=== PATIENT | male | born 1980 | race Caucasian/White ===

== ENCOUNTER 2018-10-26 16:47 | Emergency (ER) | payer MEDICARE, SELFPAY ==
[2018-10-26 16:54] VITALS: BP 133/87; PULSE 88; RESP 20; O2SAT 100
[2018-10-26 17:31] LABS: Add Manual Diff / Slide Review NO; Basophils Absolute Auto 0 /uL (0-100); Basophils Percent Auto 0.4 % (0-2); Eosinophils Absolute Auto 300 /uL (0-450); Eosinophils Percent Auto 3.4 % (2-4); Hematocrit 49.9 % (41-53); Hemoglobin 16.6 g/dL (13.5-17.5); Lymphocytes Absolute Auto 2600 /uL (1100-4500); Mean Corpuscular HGB Conc 33.2 % (30-36); Mean Corpuscular Volume 84.3 fL (80-100); Monocytes Absolute Auto 700 /uL (0-900); Monocytes Percent Auto 6.8 % (3-14); Neutrophils Absolute Auto 6400 /uL (1500-7000); Neutrophils Percent Auto 63.4 % (50-75); Platelet Count 209 X10^3/uL (150-400); Red Blood Cell Count 5.92 X10^6/uL (4.5-5.9); Red Cell Distribution Width 13.5 % (11.6-14.8); White Blood Cell Count 10.2 X10^3/uL (4.5-11.0)
--- NOTE | 2018-10-26 17:45 | PC.NURSE ---
PARTNER MARKETING MANAGER in room talking with pt.
--- NOTE | 2018-10-26 17:49 | ED.PSYCH ---
HPI - Psych <Esteban Chacko DO - Last Filed: 11/01/18 07:05> General Chief Complaint: Psychiatric Symptoms Stated Complaint: Suicidal Ideation Time Seen by Provider: 10/26/18 16:58 Source: patient Mode of arrival: ambulatory Limitations: no limitations History of Present Illness HPI Narrative: Patient is a 38-year-old male with a history of bipolar type 2. Does not see a mental health provider. His medications are provided by his primary doctor. He states that he stopped his medications approximately 1.5 weeks ago. Patient unable to give an exact reason why. Last evening patient stated that he tried to hang himself with an extension cord however the cords slipped. He has no neck pain or shortness of breath. States he did not hang from the cord. Did cut his left forearm. He has tried to hurt himself in the past. When he was in high school he was admitted to the hospital for mental health issues but has never been admitted since then. Denies any alcohol use in the past 24 hr. He states that he came to the emergency department today because he talked to his mom who lives in [place]. He states that last night was my plan tonight is her plan Related Data Home Medications Medication Instructions Recorded Confirmed cholecalciferol (vitamin D3) 5,000 unit PO DAILY 10/26/18 10/26/18 [Vitamin D3] citalopram 10 mg PO BEDTIME 10/26/18 10/26/18 clonazepam 0.5 mg PO BID 10/26/18 10/26/18 lamotrigine 200 mg PO BEDTIME 10/26/18 10/26/18 lisinopril 20 mg PO DAILY 10/26/18 10/26/18 loratadine 10 mg PO DAILY 10/26/18 10/26/18 phentermine 37.5 mg PO DAILY 10/26/18 10/26/18 ranitidine HCl 150 mg PO DAILY 10/26/18 10/26/18 Allergies Allergy/AdvReac Type Severity Reaction Status Date / Time cannabidiol (CBD) extract Allergy Swelling Verified 10/26/18 16:58 of the Eye Review of Systems <DO Brianna Hubbard Last Filed: 11/01/18 07:05> Constitutional Denies fever(s) ENT Ears, Nose, Mouth, and Throat: Denies dysphagia, Denies sore throat and Denies throat swelling Cardiovascular Denies chest pain and Denies dyspnea Respiratory Denies dyspnea Gastrointestinal Gastrointestinal: Denies abdominal pain and Denies dysphagia Genitourinary Denies dysuria Integumentary/Breasts Denies rash Neurologic Reports behavioral changes Psychiatric Reports anxiety, Reports behavioral changes, Reports depression, Reports irritability, Denies homicidal ideation and Reports suicidal ideation Hematologic/Lymphatic Comments: Not on anticoagulation Allergic/Immunologic Denies throat swelling PFSH <Esteban Chacko DO - Last Filed: 11/01/18 07:05> Medical History Bipolar 2 disorder (Acute) Surgical History No pertinent past surgical history (Acute) Social History marital status: unmarried,single lives independently: Yes Social History marital status: unmarried,single lives independently: Yes Exam <Esteban Chacko DO - Last Filed: 11/01/18 07:05> Initial Vital Signs Initial Vital Signs: Vital Signs Pulse Rate 88 10/26/18 16:54 Respiratory Rate 20 10/26/18 16:54 Blood Pressure 133/87 10/26/18 16:54 Pulse Oximetry 100 10/26/18 16:54 Const General: cooperative, healthy appearing, comfortable, well developed, well groomed and No acute distress Orientation: alert, awake and oriented x3 HENNC Head: normal to inspection, normocephalic and atraumatic Nose: external nose normal Neck Neck: normal visual inspection, full ROM, trachea midline, supple, No midline deformity, No tender and No submandibular swelling Lymphatic: No lymphadenopathy Resp Effort & Inspection: normal respiratory effort Auscultation: clear to auscultation bilaterally Cardio Rate: regular rate Rhythm: regular rhythm Pulses: radial pulses present Skin General: no rashes or lesions noted, No jaundice and No petechiae Rashes: no rashes Other: No bruising around the neck patient has 2x 8 in superficial lacerations to the volar aspect of his left arm. No active bleeding. Neuro General: alert, awake and oriented x3 Cognition: normal cognition Speech: speech normal Gait: normal gait Motor: muscle tone normal throughout Extrem General: normal to inspection and capillary refill normal Psych Appearance: grossly normal and well kempt Speech and Movement: agitated, pressured speech, restless and speech not slurred Mood: anxious mood Affect: animated Attitude: cooperative Thought Content: no homicidality and suicidality <Kosta Lopez MD - Last Filed: 11/15/18 02:24> Initial Vital Signs Initial Vital Signs: Vital Signs Pulse Rate 88 10/26/18 16:54 Respiratory Rate 20 10/26/18 16:54 Blood Pressure 133/87 10/26/18 16:54 Pulse Oximetry 100 10/26/18 16:54 <Leslie Dc DO - Last Filed: 10/27/18 18:38> Initial Vital Signs Initial Vital Signs: Vital Signs Pulse Rate 88 10/26/18 16:54 Respiratory Rate 20 10/26/18 16:54 Blood Pressure 133/87 10/26/18 16:54 Pulse Oximetry 100 10/26/18 16:54 Course <Esteban Chacko DO - Last Filed: 11/01/18 07:05> Orders Ordered: Discontinued Medications Clonazepam (Klonopin) 2 mg PO NOW ONE Stop: 10/27/18 00:29 Last Admin: 10/27/18 00:46 Dose: 1 mg Clonazepam (Klonopin) 0.5 mg PO NOW ONE Stop: 10/27/18 12:28 Last Admin: 10/27/18 14:12 Dose: 0.5 mg Lisinopril (Zestril) 20 mg PO NOW ONE Stop: 10/27/18 12:28 Last Admin: 10/27/18 12:37 Dose: 20 mg Vital Signs - 8 hr 10/27/18 12:06 10/27/18 12:37 10/27/18 14:16 Temperature 97.6 F 97.0 F L Pulse Rate 90 90 82 Respiratory Rate 16 16 Blood Pressure 119/84 Blood Pressure [Right Arm] 119/84 123/85 Pulse Oximetry 96 <Kosta Lopez MD - Last Filed: 11/15/18 02:24> Course Narrative: 01:00 AM. 10/27/2018. The initial assessment was by Dr. Chacko prior to my arrival on my shift. The patient was evaluated for a suicide attempt yesterday by hanging. He also made a gesture of cutting his arm today but did no significant injury. Since my arrival on shift the patient has been compliant with nurses, the secondary social studies teacher has been working into the evening trying to find him a mental health bed. The 2 facilities that were most responsive for probably offering placement have not offered a bed tonight. Best opportunity will occur in the morning, apparently. For the night, the patient has been given clonazepam to help him sleep, at his request. He remains compliant with staff and easy to manage. He is in a voluntary status. Manuelito LUNA. Orders Ordered: Discontinued Medications Clonazepam (Klonopin) 2 mg PO NOW ONE Stop: 10/27/18 00:29 Last Admin: 10/27/18 00:46 Dose: 1 mg Clonazepam (Klonopin) 0.5 mg PO NOW ONE Stop: 10/27/18 12:28 Last Admin: 10/27/18 14:12 Dose: 0.5 mg Lisinopril (Zestril) 20 mg PO NOW ONE Stop: 10/27/18 12:28 Last Admin: 10/27/18 12:37 Dose: 20 mg Vital Signs - 8 hr 10/27/18 12:06 10/27/18 12:37 10/27/18 14:16 Temperature 97.6 F 97.0 F L Pulse Rate 90 90 82 Respiratory Rate 16 16 Blood Pressure 119/84 Blood Pressure [Right Arm] 119/84 123/85 Pulse Oximetry 96 <Leslie Dc DO - Last Filed: 10/27/18 18:38> Orders Ordered: Discontinued Medications Clonazepam (Klonopin) 2 mg PO NOW ONE Stop: 10/27/18 00:29 Last Admin: 10/27/18 00:46 Dose: 1 mg Clonazepam (Klonopin) 0.5 mg PO NOW ONE Stop: 10/27/18 12:28 Last Admin: 10/27/18 14:12 Dose: 0.5 mg Lisinopril (Zestril) 20 mg PO NOW ONE Stop: 10/27/18 12:28 Last Admin: 10/27/18 12:37 Dose: 20 mg Vital Signs - 8 hr 10/27/18 12:06 10/27/18 12:37 10/27/18 14:16 Temperature 97.6 F 97.0 F L Pulse Rate 90 90 82 Respiratory Rate 16 16 Blood Pressure 119/84 Blood Pressure [Right Arm] 119/84 123/85 Pulse Oximetry 96 [facility] - Psych <Esteban Chacko DO - Last Filed: 11/01/18 07:05> Lab Data Result diagrams: 10/26/18 17:20 10/26/18 17:20 Lab Results 10/26/18 10/26/18 10/26/18 Range/Units 17:20 17:20 17:20 WBC 10.2 (4.5-11.0) X10^3/uL RBC 5.92 H (4.5-5.9) X10^6/uL Hgb 16.6 (13.5-17.5) g/dL Hct 49.9 (41-53) % MCV 84.3 (80-100) fL MCH 28.0 (26-34) PG MCHC 33.2 (30-36) % RDW 13.5 (11.6-14.8) % Plt Count 209 (150-400) X10^3/uL Neut % (Auto) 63.4 (50-75) % Lymph % (Auto) 26.0 (25-40) % [place] % (Auto) 6.8 (3-14) % Eos % (Auto) 3.4 (2-4) % Baso % (Auto) 0.4 (0-2) % Neut # (Auto) 6400 (4772-3541) /uL Lymph # (Auto) 2600 (1148-5672) /uL [place] # (Auto) 700 (0-900) /uL Eos # (Auto) 300 (0-450) /uL Baso # (Auto) 0 (0-100) /uL Sodium 142 (137-145) mmol/L Potassium 4.5 (3.4-5.1) mmol/L Chloride 103 (98-107) mmol/L Carbon Dioxide 22 (22-32) mmol/L BUN 13 (9-20) mg/dL Creatinine 1.30 H (0.66-1.25) mg/dL Estimated GFR > 60.0 (>60) mL/min BUN/Creatinine Ratio 10.0 (6-22) Glucose 101 H (70-100) mg/dL Calcium 9.7 (8.4-10.2) mg/dL TSH 2.13 (0.47-4.68) uIU/mL Salicylates < 1.0 (<20) mg/dL Urine Opiates Screen (Negative) Ur Oxycodone Screen (Negative) Urine Methadone Screen (Negative) Acetaminophen < 10 L (10-30) ug/mL Ur Barbiturates Screen (Negative) U Tricyclic Antidepress (Negative) Ur Phencyclidine Scrn (Negative) Ur Amphetamines Screen (Negative) U Methamphetamines Scrn (Negative) Ur MDMA Scrn (Ecstasy) (Negative) U Benzodiazepines Scrn (Negative) Urine Cocaine Screen (Negative) U Marijuana (THC) Screen (Negative) Ethyl Alcohol < 10 mg/dL 10/26/18 Range/Units 18:30 WBC (4.5-11.0) X10^3/uL RBC (4.5-5.9) X10^6/uL Hgb (13.5-17.5) g/dL Hct (41-53) % MCV (80-100) fL MCH (26-34) PG MCHC (30-36) % RDW (11.6-14.8) % Plt Count (150-400) X10^3/uL Neut % (Auto) (50-75) % Lymph % (Auto) (25-40) % [place] % (Auto) (3-14) % Eos % (Auto) (2-4) % Baso % (Auto) (0-2) % Neut # (Auto) (5757-7187) /uL Lymph # (Auto) (2467-9540) /uL [place] # (Auto) (0-900) /uL Eos # (Auto) (0-450) /uL Baso # (Auto) (0-100) /uL Sodium (137-145) mmol/L Potassium (3.4-5.1) mmol/L Chloride (98-107) mmol/L Carbon Dioxide (22-32) mmol/L BUN (9-20) mg/dL Creatinine (0.66-1.25) mg/dL Estimated GFR (>60) mL/min BUN/Creatinine Ratio (6-22) Glucose (70-100) mg/dL Calcium (8.4-10.2) mg/dL TSH (0.47-4.68) uIU/mL Salicylates (<20) mg/dL Urine Opiates Screen Negative (Negative) Ur Oxycodone Screen Negative (Negative) Urine Methadone Screen Negative (Negative) Acetaminophen (10-30) ug/mL Ur Barbiturates Screen Negative (Negative) U Tricyclic Antidepress Negative (Negative) Ur Phencyclidine Scrn Negative (Negative) Ur Amphetamines Screen Negative (Negative) U Methamphetamines Scrn Negative (Negative) Ur MDMA Scrn (Ecstasy) Negative (Negative) U Benzodiazepines Scrn Positive H (Negative) Urine Cocaine Screen Negative (Negative) U Marijuana (THC) Screen Positive H (Negative) Ethyl Alcohol mg/dL MDM Narrative Medical decision making narrative: Patient attempted to hang himself last night however there are no residual findings from this. Will hold on any radiologic studies for now. Patient arrived here voluntarily however he does have a specific plan about hurting himself. He states that he does want to be admitted to the hospital. Labs are pending. Care turned over to night provider at change of shift. Social Work also involved. <Kosta Lopez MD - Last Filed: 11/15/18 02:24> Lab Data Lab Results 10/26/18 10/26/18 10/26/18 Range/Units 17:20 17:20 17:20 WBC 10.2 (4.5-11.0) X10^3/uL RBC 5.92 H (4.5-5.9) X10^6/uL Hgb 16.6 (13.5-17.5) g/dL Hct 49.9 (41-53) % MCV 84.3 (80-100) fL MCH 28.0 (26-34) PG MCHC 33.2 (30-36) % RDW 13.5 (11.6-14.8) % Plt Count 209 (150-400) X10^3/uL Neut % (Auto) 63.4 (50-75) % Lymph % (Auto) 26.0 (25-40) % [place] % (Auto) 6.8 (3-14) % Eos % (Auto) 3.4 (2-4) % Baso % (Auto) 0.4 (0-2) % Neut # (Auto) 6400 (0318-5502) /uL Lymph # (Auto) 2600 (3319-2349) /uL [place] # (Auto) 700 (0-900) /uL Eos # (Auto) 300 (0-450) /uL Baso # (Auto) 0 (0-100) /uL Sodium 142 (137-145) mmol/L Potassium 4.5 (3.4-5.1) mmol/L Chloride 103 (98-107) mmol/L Carbon Dioxide 22 (22-32) mmol/L BUN 13 (9-20) mg/dL Creatinine 1.30 H (0.66-1.25) mg/dL Estimated GFR > 60.0 (>60) mL/min BUN/Creatinine Ratio 10.0 (6-22) Glucose 101 H (70-100) mg/dL Calcium 9.7 (8.4-10.2) mg/dL TSH 2.13 (0.47-4.68) uIU/mL Salicylates < 1.0 (<20) mg/dL Urine Opiates Screen (Negative) Ur Oxycodone Screen (Negative) Urine Methadone Screen (Negative) Acetaminophen < 10 L (10-30) ug/mL Ur Barbiturates Screen (Negative) U Tricyclic Antidepress (Negative) Ur Phencyclidine Scrn (Negative) Ur Amphetamines Screen (Negative) U Methamphetamines Scrn (Negative) Ur MDMA Scrn (Ecstasy) (Negative) U Benzodiazepines Scrn (Negative) Urine Cocaine Screen (Negative) U Marijuana (THC) Screen (Negative) Ethyl Alcohol < 10 mg/dL 10/26/18 Range/Units 18:30 WBC (4.5-11.0) X10^3/uL RBC (4.5-5.9) X10^6/uL Hgb (13.5-17.5) g/dL Hct (41-53) % MCV (80-100) fL MCH (26-34) PG MCHC (30-36) % RDW (11.6-14.8) % Plt Count (150-400) X10^3/uL Neut % (Auto) (50-75) % Lymph % (Auto) (25-40) % [place] % (Auto) (3-14) % Eos % (Auto) (2-4) % Baso % (Auto) (0-2) % Neut # (Auto) (9653-1943) /uL Lymph # (Auto) (5635-5540) /uL [place] # (Auto) (0-900) /uL Eos # (Auto) (0-450) /uL Baso # (Auto) (0-100) /uL Sodium (137-145) mmol/L Potassium (3.4-5.1) mmol/L Chloride (98-107) mmol/L Carbon Dioxide (22-32) mmol/L BUN (9-20) mg/dL Creatinine (0.66-1.25) mg/dL Estimated GFR (>60) mL/min BUN/Creatinine Ratio (6-22) Glucose (70-100) mg/dL Calcium (8.4-10.2) mg/dL TSH (0.47-4.68) uIU/mL Salicylates (<20) mg/dL Urine Opiates Screen Negative (Negative) Ur Oxycodone Screen Negative (Negative) Urine Methadone Screen Negative (Negative) Acetaminophen (10-30) ug/mL Ur Barbiturates Screen Negative (Negative) U Tricyclic Antidepress Negative (Negative) Ur Phencyclidine Scrn Negative (Negative) Ur Amphetamines Screen Negative (Negative) U Methamphetamines Scrn Negative (Negative) Ur MDMA Scrn (Ecstasy) Negative (Negative) U Benzodiazepines Scrn Positive H (Negative) Urine Cocaine Screen Negative (Negative) U Marijuana (THC) Screen Positive H (Negative) Ethyl Alcohol mg/dL <Leslie Dc, DO - Last Filed: 10/27/18 18:38> Lab Data Attestation: I reviewed the patient's lab results. Lab Results 10/26/18 10/26/18 10/26/18 Range/Units 17:20 17:20 17:20 WBC 10.2 (4.5-11.0) X10^3/uL RBC 5.92 H (4.5-5.9) X10^6/uL Hgb 16.6 (13.5-17.5) g/dL Hct 49.9 (41-53) % MCV 84.3 (80-100) fL MCH 28.0 (26-34) PG MCHC 33.2 (30-36) % RDW 13.5 (11.6-14.8) % Plt Count 209 (150-400) X10^3/uL Neut % (Auto) 63.4 (50-75) % Lymph % (Auto) 26.0 (25-40) % [place] % (Auto) 6.8 (3-14) % Eos % (Auto) 3.4 (2-4) % Baso % (Auto) 0.4 (0-2) % Neut # (Auto) 6400 (6745-2083) /uL Lymph # (Auto) 2600 (6293-1169) /uL [place] # (Auto) 700 (0-900) /uL Eos # (Auto) 300 (0-450) /uL Baso # (Auto) 0 (0-100) /uL Sodium 142 (137-145) mmol/L Potassium 4.5 (3.4-5.1) mmol/L Chloride 103 (98-107) mmol/L Carbon Dioxide 22 (22-32) mmol/L BUN 13 (9-20) mg/dL Creatinine 1.30 H (0.66-1.25) mg/dL Estimated GFR > 60.0 (>60) mL/min BUN/Creatinine Ratio 10.0 (6-22) Glucose 101 H (70-100) mg/dL Calcium 9.7 (8.4-10.2) mg/dL TSH 2.13 (0.47-4.68) uIU/mL Salicylates < 1.0 (<20) mg/dL Urine Opiates Screen (Negative) Ur Oxycodone Screen (Negative) Urine Methadone Screen (Negative) Acetaminophen < 10 L (10-30) ug/mL Ur Barbiturates Screen (Negative) U Tricyclic Antidepress (Negative) Ur Phencyclidine Scrn (Negative) Ur Amphetamines Screen (Negative) U Methamphetamines Scrn (Negative) Ur MDMA Scrn (Ecstasy) (Negative) U Benzodiazepines Scrn (Negative) Urine Cocaine Screen (Negative) U Marijuana (THC) Screen (Negative) Ethyl Alcohol < 10 mg/dL 10/26/18 Range/Units 18:30 WBC (4.5-11.0) X10^3/uL RBC (4.5-5.9) X10^6/uL Hgb (13.5-17.5) g/dL Hct (41-53) % MCV (80-100) fL MCH (26-34) PG MCHC (30-36) % RDW (11.6-14.8) % Plt Count (150-400) X10^3/uL Neut % (Auto) (50-75) % Lymph % (Auto) (25-40) % [place] % (Auto) (3-14) % Eos % (Auto) (2-4) % Baso % (Auto) (0-2) % Neut # (Auto) (6213-1377) /uL Lymph # (Auto) (4875-3663) /uL [place] # (Auto) (0-900) /uL Eos # (Auto) (0-450) /uL Baso # (Auto) (0-100) /uL Sodium (137-145) mmol/L Potassium (3.4-5.1) mmol/L Chloride (98-107) mmol/L Carbon Dioxide (22-32) mmol/L BUN (9-20) mg/dL Creatinine (0.66-1.25) mg/dL Estimated GFR (>60) mL/min BUN/Creatinine Ratio (6-22) Glucose (70-100) mg/dL Calcium (8.4-10.2) mg/dL TSH (0.47-4.68) uIU/mL Salicylates (<20) mg/dL Urine Opiates Screen Negative (Negative) Ur Oxycodone Screen Negative (Negative) Urine Methadone Screen Negative (Negative) Acetaminophen (10-30) ug/mL Ur Barbiturates Screen Negative (Negative) U Tricyclic Antidepress Negative (Negative) Ur Phencyclidine Scrn Negative (Negative) Ur Amphetamines Screen Negative (Negative) U Methamphetamines Scrn Negative (Negative) Ur MDMA Scrn (Ecstasy) Negative (Negative) U Benzodiazepines Scrn Positive H (Negative) Urine Cocaine Screen Negative (Negative) U Marijuana (THC) Screen Positive H (Negative) Ethyl Alcohol mg/dL MDM Narrative Medical decision making narrative: Patient signed out to myself by Dr. Lopez. Patient is pending placement for voluntary hospitalization. Patient has been calm and cooperative throughout stay wit Dr. Lopez. Accepted at [facility] but did not have bed available yet. Reconctacted at 8am and they still accept and believe they will have bed after 10am. Re-contacted [facility] and they have a bed available, Dr. Garcia accepts, transfer will arrived at 2:30 p.m. Patient has eaten, given lisinopril and requested dose of clonazepam, he normally takes 0.5mg orally twice daily. Patient continues to be calm and cooperative in the department. EMS arrived for transport. Discharge Plan Departure Patient Disposition: [facility] Clinical Impression: Depression with suicidal ideation Discharge Date/Time: 10/27/18 14:40 Interventions: ED Discharge Assessment Last Done: 10/27/18 14:40 Prescriptions: No Action lamotrigine 200 mg Tablet 200 mg PO BEDTIME RF: 0 citalopram 10 mg tablet 10 mg PO BEDTIME RF: 0 lisinopril 20 mg Tablet 20 mg PO DAILY RF: 0 clonazepam 0.5 mg Tablet 0.5 mg PO BID RF: 0 phentermine 37.5 mg Tablet 37.5 mg PO DAILY RF: 0 ranitidine HCl 150 mg Tablet 150 mg PO DAILY RF: 0 loratadine 10 mg Tablet 10 mg PO DAILY RF: 0 cholecalciferol (vitamin D3) [Vitamin D3] 5,000 unit Tablet 5,000 unit PO DAILY RF: 0
--- NOTE | 2018-10-26 18:00 | PC.NURSE ---
Pt requesting to take his dose of clonazepam 0.5mg. Provider ok. Provided pt with own dose of clonazepam from his back pack.
[2018-10-26 18:04] LABS: Acetaminophen < 10 ug/mL (10-30); Blood Urea Nitrogen 13 mg/dL (9-20); Calcium 9.7 mg/dL (8.4-10.2); Carbon Dioxide 22 mmol/L (22-32); Chloride 103 mmol/L (98-107); Estimated Glomerular Filt Rate > 60.0 mL/min (>60); Ethanol (ETOH) < 10 mg/dL; Glucose 101 mg/dL (70-100); HEMOLYSIS < 15 (0-50); Potassium 4.5 mmol/L (3.4-5.1); Salicylate < 1.0 mg/dL (<20); Sodium 142 mmol/L (137-145)
--- NOTE | 2018-10-26 18:10 | CM.SWNOTE ---
Presenting Problem: Pt is a 38 yo male who came to voluntarily after attempted suicide by hanging.He reported that he tried twice and still has a plan. Pt is unclear of precipitant. Plan is to by asphyxiation. He spoke of attaching a pipe shot gun to his truck. He reported that he has severalplans and cannot contract for safety at this time. Psychiatric History: Pt is currently seen by Es Tam NP in [place]. He was not able to give me a specific agency, but stated that she is located on [facility]. She is the medication provider; pt does not have, nor want a therapist. He was hospitalized once in and also was p laced in residential school. Pt reported that he was diagnosed at the age of 18. He had many behavioral outburst in school and was thus placed in a residential program. Pt receives Medicare mike to psychiatric disability. Family History: (psychiatric and substance abuse) Pt reported that his mother and aunts have dx of depression. He has a cousin with schizophrenia. Father's side there is autism. No significant drug use, but uncle who is an alcoholic. Substance Abuse: Pt reported that he has been drinking screwdrivers ( orange juice and vodka) to help sleep. He reported that he is only using 1 shot of vodka and only drinking one drink per night. He had used some marijuana, specifically sativa, found this to be h elpful, but also wondered if the sativa added to his current intense feelings. Presentation/ mental status Pt is in scrubs, lying on a mat in a room designated for behavioral health patients. He would frequently grimace, hit his face, and move his body in such a way which appeared to be either spasms or tics. Pt reported that he has had these tics for a long time. Behavior: pt is cooperative. He stated that he is fearful and avoids hospitals, but needs treatment. Speech: His speech is normal for rate and rhythm, but is variable in tone. No sign of psychotic thought process, but is unsure if at times he may hear voices. Denied any command hallucinations. Patient is O x 4. SI/HI: no HI, but pt reported that he took 54 mg of Clonazapam 4 months. ago. He told his provider, but she did not hospitalize him. Affect: blunted, but also labile. Mood: depressed. Education/ Daily Activities/coping strategies: Pateint graduated and attended a year of school for massage therapy. Pt's father was a chemical waste management technician and they moved frequently. Pt reported having lived in [place], [place], and [place]. When asked what he does during the day, pt said he works to distract himself. He said he uses movies, video games and his cat to try to cope throughout the day. Precipitant to current crisis: Pt is unsure what has caused this most recent intensity. He did state that he stopped his Lamictal 1.5 weeks ago, as he questioned if the vomiting and diarrhea he was experiencing were related to this medication. He is aware that this is unlikely since he has been on this medication for several years. He reported that his moods have been super intense in the last couple of months. [place] He lived there for 2 years, went to [facility] for a year and has been back for 1.5 years. He reported that the time in [facility] was terrible and he was frequently suicidal there. Goal: Pt meets criteria for inpatient hospitalization for safety. At this time he is willing to go voluntarily. Discharge Planning/Care Management ED Crisis Response Assessment Start: 10/26/18 18:00 Freq: Status: Active Protocol: Document 10/26/18 18:00 (Rec: 10/26/18 18:10 [id number]) ED Crisis Response Assessment ORDNANCE HANDLER Assessment Type Risk of Suicide Attempted Suicide Mental Health Reason for ORDNANCE HANDLER Referral Pt was brout to [facility] by cab from his residence in [place]. He reported that he tried to hang himself and wants helps. Pt in need of hospitalization. Referred by Ed provider and RN Presenting Problem Pt is a 38 male who presented to emergency room with Suicidal ideation. Pt stated that he tried to hang himself twice last night; once using a tree and another time his truck. He also used a razer, but has superficial cuts on his left arm. Pt evidently called his mother, Yee Snell who lives in [place] who encouraged him to go to the hospital Pt reported I have an irrational fear of ambulances and hospitals, but I need help. Mental health diagnosis Pt reported a dx of bipolar 2 with rapid cyclilng. VOA/CMS check Yes: no MH profile or hx listed Suicidal thoughts Yes Past Suicidal thoughts Yes Current Suicidal thoughts Yes Prior Suicide attempts Yes Number of suicide attempts 2 Current plan for self harm Yes Access to guns and weapons No Thoughts of harm to others No Past thoughts of harm to others No Current thoughts of harming others No Prior attempts to harm others No Current plan to harm others No Risk factor comments Hx of mental illness without significant improvement. No support system other than mother who lives in [place]. Active plan. Relevant Medical History unknown. recent vomiting/ diarrhea, spasms of unknown etiology Crisis Plan Bed search for voluntary hospitalization. [facility] called [facility], but only beds available at this time are [facility].
[2018-10-26 18:34] LABS: Thyroid Stimulating Hormone 2.13 uIU/mL (0.47-4.68)
[2018-10-26 18:42] LABS: Urine Amphetamines Negative (Negative); Urine Barbiturates Negative (Negative); Urine Benzodiazepines Positive (Negative); Urine Cocaine Negative (Negative); Urine MDMA Negative (Negative); Urine Methamphetamines Negative (Negative); Urine Morphine/Opi cutoff 2000 Negative (Negative); Urine Phencyclidine Negative (Negative); Urine Tetrahydrocannabinol Positive (Negative)
[2018-10-26 18:43] LABS: Urine Methadone Negative (Negative); Urine Oxycodone Negative (Negative); Urine Tricyclic Antidepressant Negative (Negative)
--- NOTE | 2018-10-26 19:16 | PC.NURSE ---
offered pt another magazine to read, pt phi, was unable to make out what he was saying but pt did state he didn't want another magazine
--- NOTE | 2018-10-26 19:20 | PC.NURSE ---
Pt reports feeling better after clonazepam. He continues to not look this nurse in the eye. While lying on mattress, pt laying on stomach with head covered by hands. Offered pt food or drink at this time and pt decined
--- NOTE | 2018-10-26 19:47 | PC.NURSE ---
pt in [place] outside his room talking with [facility] on the phone.
--- NOTE | 2018-10-26 20:32 | PC.NURSE ---
pt eating cheese, eggsalad sandwich and drinking water. Door is open to [facility].
--- NOTE | 2018-10-26 21:32 | PC.NURSE ---
Cheese and water
[2018-10-26 21:37] VITALS: BP 131/91; PULSE 89; RESP 15; TEMP 36.3; O2SAT 100
--- NOTE | 2018-10-26 21:45 | PC.NURSE ---
pt laying on mattress eating cheese and playing a game on his phone.
--- NOTE | 2018-10-26 22:05 | PC.NURSE ---
Pt reports he has been throwing up night, last time was last night. Denies any nausea at this time. States his last episode of diarrhea was 2 days ago.
--- NOTE | 2018-10-26 22:33 | PC.NURSE ---
gave pt more ice water in a paper cup. Door is open to [facility]
--- NOTE | 2018-10-26 23:00 | PC.NURSE ---
pt using bathroom in room with door open.
[2018-10-26 23:32] VITALS: BP 126/86; PULSE 84; TEMP 36.1; O2SAT 99
--- NOTE | 2018-10-26 23:33 | PC.NURSE ---
Pt reports severe hopelessness. I don't even know what I'm doing here. I can't see light at the end of the tunnel, only the tunnel. And another tunnel. Pt cooperative at this time, plan of care reviewed. Sitter at door of room for safety, safety precautions in place.
[2018-10-27] MEDS: clonazePAM 0.5 MG TABLET 2 MG PO (00:46)
--- NOTE | 2018-10-27 03:35 | PC.NURSE ---
Pt given snack-- requesting pork rinds as he is on keto diet. Pt given tuna sandwiches, he states he will eat the tuna and leave the bread. Breakfast tray ordered. Pt updated to plan of care-- [facility] will have a bed later this morning after discharges.
--- NOTE | 2018-10-27 04:00 | PC.NURSE ---
pt is laying down on bed playing on phone, door to [facility] remains open
--- NOTE | 2018-10-27 07:39 | PC.NURSE ---
awaiting for transfer to [facility], pt sleeping/ even respirations/ sitter at doorway. breakfast ordered
[2018-10-27 08:03] VITALS: BP 128/100; PULSE 84; RESP 16; O2SAT 97
--- NOTE | 2018-10-27 11:17 | PC.NURSE ---
Pt. was offered pillow and warm blanket. He denied, stating I'm fine, and went back to sleep. Pt. has been sleeping since approx 0915.
[2018-10-27 12:06] VITALS: BP 119/84; PULSE 90; RESP 16; TEMP 36.4; O2SAT 96
[2018-10-27 12:37] VITALS: BP 119/84; PULSE 90
[2018-10-27] MEDS: LISINOPRIL 20 MG TABLET PO (12:37)
[2018-10-27] MEDS: clonazePAM 0.5 MG TABLET PO (14:12)
[2018-10-27 14:16] VITALS: BP 123/85; PULSE 82; RESP 16; TEMP 36.1
== END 2018-10-27 14:40 | disposition short-term general hospital (02) ==
PROVIDERS: Emergency Medicine; Emergency Provider Emergency Medicine
DX: F32.9 Major depressive disorder, single episode, unspecified (principal); R45.851 Suicidal ideations
CPT/HCPCS: 36415; 80048; 80305; 80320; 80329; 84443; 85025; 99285; G0480